=== PATIENT | male | born 1955 | race African-American/Black ===

== ENCOUNTER 2016-12-09 21:38 | Emergency (ER) | payer MEDICAID ==
[~2016-12-09] VITALS: Ht 175.3 cm; Wt 86.0 kg
[2016-12-09 23:24] VITALS: BP 231/108
[2016-12-10] MEDS ORDERED: HYDROCODONE/APAP 7.5/325MG 1 TAB TABLET PO NR (00:15)
[2016-12-10] MEDS ORDERED: CLONIDINE 0.1MG TABLET PO ONE (00:15)
[2016-12-10] MEDS ORDERED: AMLODIPINE 10MG TABLET PO NR (00:15)
[2016-12-10] MEDS ORDERED: CLONIDINE 0.1MG TABLET PO NR (00:15)
== END 2016-12-10 01:10 | disposition left against medical advice (07) ==
LOC: ER 21:38
DX: H92.01 Otalgia, right ear (principal); I51.7 Cardiomegaly; I11.9 Hypertensive heart disease without heart failure; Z91.14 Patient's other noncompliance with medication regimen; Z98.890 Other specified postprocedural states
CPT/HCPCS: 93005; 99283; Z7610

== ENCOUNTER 2017-11-14 07:26 | Emergency (ER) | payer MEDICAID ==
[~2017-11-14] VITALS: Ht 175.3 cm; Wt 72.0 kg
[2017-11-14] MEDS ORDERED: DIATR MEGLU/DIATRIZOATE SOLN 30ML ONE (09:03)
[2017-11-14 10:29] VITALS: BP 126/69
== END 2017-11-14 10:31 | disposition home or self-care (01) ==
LOC: ER 08:10
DX: K94.23 Gastrostomy malfunction (principal); I10 Essential (primary) hypertension; G52.0 Disorders of olfactory nerve; Z85.810 Personal history of malignant neoplasm of tongue; Z87.891 Personal history of nicotine dependence
CPT/HCPCS: 74018; 99284; Q9963

== ENCOUNTER 2021-09-26 22:59 | Emergency (ER) | payer MEDICARE, MEDICAID ==
[~2021-09-26] VITALS: Ht 175.3 cm; Wt 82.0 kg
[2021-09-26 23:41] LABS: BASOPHILS % 0.7 % (0.0-2.0); EOSINOPHILS % 2.9 % (0.0-5.0); HEMATOCRIT. 32.3 % (42.0-52.0); HEMOGLOBIN. 10.5 g/dL (14.0-18.0); LYMPHOCYTES % 10.4 % (20.0-50.0); MEAN CORPUSCULAR HEMOGLOBIN 28.9 pg (28.0-32.0); MEAN CORPUSCULAR VOLUME 88.7 fL (80.0-94.0); MEAN PLATELET VOLUME 6.3 fl (7.4-10.4); MONOCYTES % 11.3 % (2.0-8.0); NEUTROPHILS % 74.7 % (40.0-76.0); PLATELET 467 x1000/uL (130-400); RED BLOOD CELL COUNT 3.64 mill/uL (4.7-6.1)
[2021-09-26 23:49] LABS: CHLORIDE 104 mEq/L (98-107)
[2021-09-27] MEDS ORDERED: MORPHINE SULFATE 4 MG/ML CPJ (NOT FOR IM USE) IV ONE (00:30)
[2021-09-27] MEDS ORDERED: CEFTRIAXONE 1 G PREMIX 50 ML IV ONE (00:45)
[2021-09-27] MEDS ORDERED: NITROGLYCERIN OINT 1GM/INCH UDPKT TD ONE (03:00)
[2021-09-27] MEDS ORDERED: ASPIRIN 81MG TABLET GT ONE (03:00)
[2021-09-27 06:43] VITALS: BP 167/95
== END 2021-09-27 07:45 | disposition left against medical advice (07) ==
LOC: ER 22:59
DX: J04.10 Acute tracheitis without obstruction (principal); I11.0 Hypertensive heart disease with heart failure; I50.9 Heart failure, unspecified; Z93.0 Tracheostomy status; Z93.1 Gastrostomy status; Z85.89 Personal history of malignant neoplasm of other organs and systems; Z20.822 Contact with and (suspected) exposure to COVID-19
CPT/HCPCS: 36415; 71045; 80053; 83880; 84484; 85025; 87426; 87804; 93005; 96365; 96375; 99291; C9803; J0696; J2270